=== PATIENT | female | born 1940 | race Caucasian/White ===

== ENCOUNTER 2023-04-19 19:34 | Emergency (ER) | payer MEDICARE, SELFPAY ==
[2023-04-19 19:45] VITALS: BP 152/70
[2023-04-19 19:53] LABS: Glucose - Point of Care 97 mg/dl (70-99)
--- NOTE | 2023-04-19 20:31 | ED.CVA ---
History of Present Illness
General
Chief Complaint: CVA/TIA Symptoms
Source: patient
Exam Limitations: none
Time Seen by Provider: 04/19/23 20:19
Nursing documentation reviewed up to this point in time: agreed with
Onset of Stroke Symptoms
Onset of symptoms known: Yes
Date of onset of symptoms: 04/19/23
Time of onset of symptoms: 19:30
Travel History
Have you had any contact with someone who has COVID-19?: No
Do you have any symptoms of coronavirus? Fever > 100 degrees, chills, cough, shortness of breath, sore throat, loss of taste or smell, muscle aches, or headache?: No
History of Present Illness
History of Present Illness:
82-year-old female presents for evaluation about an hour ago she complained of increased weakness of her chronically weak right leg 2019 she had a intracerebral hemorrhage, subsequently recovered physical therapy has chronic weakness of her right
leg greater than arm, developed A-fib about a year ago started on Eliquis which she has been compliant with, drinks socially not excess none for about 4 days, has some mild headache and neck pain feels nauseous vomited x 1 she is concerned she is
having another stroke/bleed
Past History
Past History
ED Past Medical History: Arrthythmia, Cancer (breast, thyroid, skin CA), HTN, Hypothyroidism, Psychiatric (MDD/O), Other (RHETT, peripheral neuropathy) and Other (ICHemorrhage, morbid obesity); Negative CAD, IDDM or NIDDM
ED Past Surgical History: Gynecological (hysterectomy) and Other (lumpectomy, radiation for breast CA; thyroidectomy surgery for thyroid cancer)
Social History
Tobacco: Former smoker (35 years ago)
Alcohol: None
Drug: None
Personal:
Living: with family
Employment: Retired
Family History
Family History: Other (reviewed and non-contributory)
Review of Systems
Review of Systems
All Other Systems: Not applicable
Constitutional: Reports fatigue; Denies fever
Respiratory: Reports no symptoms
Cardiac: Reports no symptoms
ABD/GI: Reports vomiting
: Reports no symptoms
Neurological: Reports headache and weakness (Right-sided)
Phy Exam
Physical Exam
Physical Exam:
Physical Exam
General: no apparent distress, not acutely ill
Neck: No jaundice no tongue
Heart: Regular
Lungs: no acute respiratory distress. clear bilaterally
Abdomen: Nontender
Neuro: alert and oriented. Weakness of the right leg
Skin: no rash
Psychiatric: well kept. interactive and cooperative
Extremities: no edema.
Course
Orders/Labs/Results
Orders:
Orders
04/19/23 19:47
Electrocardiogram (*1) Urgent
Reason for Study: Shortness of Breath
Accucheck Once [Bedside Glucose Monitoring-ONCE] As Directed
04/19/23 19:48
EKG- Treatment ONCE
04/19/23 19:50
CT Head W/o Iv Contrast Urgent
Comment:
Reason For Exam: weakness
04/19/23 20:15
CMP [Comprehensive Metabolic Panel] Urgent
Complete Blood Count/With Diff Urgent
04/19/23 20:36
0.9% Sodium Chloride 1000 ml [Nss] 1,000 ml IV BOLUS
Ondansetron Injectable [Zofran] 4 mg IV NOW STA
Abnormal Lab Results
04/19/23
20:15
MPV 11.2 H fL
(7.4-10.4)
Absolute Lymphs (auto) 0.4 L 10^3/uL
(1.2-3.4)
Neutrophils % 90.8 H %
(42.2-75.2)
Lymphocytes % 5.2 L %
(20.5-51.1)
Chloride 109 H mmol/L
(98-107)
BUN 23 H mg/dl
(7-17)
Glucose 121 H mg/dl
(70-99)
04/19/23 20:15
04/19/23 20:15
Vital Signs
Initial and Last Documented VS:
Initial Vital Signs
Temp Pulse Resp BP Pulse Ox
97.4 F 104 26 152/70 100
04/19/23 19:45 04/19/23 19:45 04/19/23 19:45 04/19/23 19:45 04/19/23 19:45
Last Documented Vital Signs
Temp Pulse Resp BP Pulse Ox
97.4 F 97 22 140/60 94
04/19/23 19:45 04/19/23 22:00 04/19/23 22:00 04/19/23 22:00 04/19/23 22:00
MDM/Problems Addressed
Differential Diagnosis Includes:
CVA recrudescence deconditioning UTI
MDM/Problems Addressed:
Right leg weakness
Chronic conditions affecting care: Arrhythmia and Neurological disorder
Acute Exacerbation and/or Progression of Chronic Illness: Arrhythmia and Neurological disorder
*Critical Care Note
Total Time (30-74mins, 75-104mins- exclusive of procedures): Not Applicable
Update Note
Update Note:
9:[address] of the head noted EKG noted labs noted
1010 pt feeling much better
she says she is at her baseline
ED Attending Note
-
Portions of this chart may have been created with voice recognition software.� Occasional wrong word or��sound alike� substitutions may have occurred due to the inherent limitations of voice recognition software.
Discharge Plan
Departure
Patient Disposition: Home (Routine Discharge)
Date of Disposition: 04/19/23
Time of Disposition: 22:09
Patient with high blood pressure during this ER visit?: No
Condition: Good
Discharge Problem:
Vomiting
Instructions: Acute Nausea and Vomiting
Prescriptions:
New
ondansetron 4 mg tablet,disintegrating
4 mg PO Q8H PRN (Reason: nausea and vomiting) 4 Days Qty: 14 0RF
No Action
Eliquis 5 MG tablet
5 mg PO BID Qty: 60 0RF
calcium carbonate-vitamin D3 [Oyster Shell Calcium-Vit D3] 1 EACH tablet
1 ea PO BID
levothyroxine 88 mcg Tablet
88 mcg PO DAILY
diltiazem HCl 120 MG capsule,extended release 24hr
120 mg PO BID
Patient Comments:
Pt states 'I started taking it twice a day before I left for my trip on December 11 but I don't remember the exact date.'
furosemide 20 MG tablet
20 mg PO DAILY PRN (Reason: SWELLING OF THE ANKLES)
amoxicillin-pot clavulanate 875-125 mg Tablet
1 tab PO BID Qty: 10 0RF
Referrals:
Lola Barnett DO [Family Provider] -
Interventions
Interventions:
*Risk Screen - Suicide Last Done: 04/19/23 19:45
*Neglect/Abuse Screening Last Done: 04/19/23 19:45
ED- Cardiac Assessment Last Done: 04/19/23 20:52
ED- Neurological Assessment Last Done: 04/19/23 20:52
ED- Pulmonary Assessment Last Done: 04/19/23 20:52
[2023-04-19 20:33] LABS: % Basophils 0.3 % (0-2); % Eosinophils 1.2 % (0-6); % Immature Granulocytes 0.4 % (0-0.5); % Lymphocytes 5.2 % (20.5-51.1); % Monocytes 2.1 % (1.7-9.3); % Neutrophils 90.8 % (42.2-75.2); Absolute Eosinophils 0.1 10^3/uL (0-0.7); Absolute Lymphocytes 0.4 10^3/uL (1.2-3.4); Absolute Monocytes 0.1 10^3/uL (0.1-0.6); Absolute Neutrophils 6.1 10^3/uL (1.4-6.5); Hematocrit 37.8 % (37.0-47.0); Hemoglobin 12.9 g/dL (12.0-16.0); Mean Corp Hgb Conc. 34.1 g/dL (33.0-37.0); Mean Corpuscular Hgb 30.3 pg (27.0-31.0); Mean Corpuscular Volume 88.7 fL (81.0-99.0); Mean Platelet Volume 11.2 fL (7.4-10.4); Nucleated Red Blood Cells % 0 %; Platelet Count 148 10^3/uL (130-400); Red Blood Cell Count 4.26 10^6/uL (4.20-5.40); Red Cell Dist. Width 12.5 % (11.5-14.5); White Blood Cell Count 6.7 10^3/uL (4.8-10.8)
[2023-04-19 20:43] LABS: ALT (SGPT) 17 U/L (0-35); AST (SGOT) 27 U/L (14-36); Alkaline Phosphatase 92 U/L (38-126); Blood Urea Nitrogen 23 mg/dl (7-17); Calcium 9.1 mg/dl (8.4-10.2); Carbon Dioxide 23 mmol/L (22-30); Chloride 109 mmol/L (98-107); Glucose 121 mg/dl (70-99); Potassium 3.8 mmol/L (3.5-5.1); Sodium 138 mmol/L (135-145); Total Bilirubin 0.7 mg/dl (0.2-1.3); Total Protein 6.7 g/dl (6.3-8.2); eGFR > 60.00
[2023-04-19] MEDS: NSS 1000 IV (20:46)
[2023-04-19 20:49] VITALS: BP 137/55
[2023-04-19 21:00] VITALS: BP 145/56
[2023-04-19 22:00] VITALS: BP 140/60
[2023-04-19 22:17] VITALS: BP 137/65
== END 2023-04-19 22:22 | disposition home or self-care (01) ==
LOC: EMR 19:34
PROVIDERS: Student in an Organized Health Care Education/Training Program; EMERGENCY PHYSICIAN Emergency Medicine; FAMILY PHYSICIAN Student in an Organized Health Care Education/Training Program
DX: R11.10 Vomiting, unspecified (principal); R51.9 Headache, unspecified; R53.83 Other fatigue; R53.1 Weakness; M54.2 Cervicalgia; I48.91 Unspecified atrial fibrillation; R56.9 Unspecified convulsions; I11.0 Hypertensive heart disease with heart failure; I50.9 Heart failure, unspecified; F41.9 Anxiety disorder, unspecified; F32.A Depression, unspecified; G47.33 Obstructive sleep apnea (adult) (pediatric); E66.01 Morbid (severe) obesity due to excess calories; G62.9 Polyneuropathy, unspecified; Z79.01 Long term (current) use of anticoagulants; Z85.850 Personal history of malignant neoplasm of thyroid; Z85.3 Personal history of malignant neoplasm of breast; Z85.828 Personal history of other malignant neoplasm of skin; Z86.73 Personal history of transient ischemic attack (TIA), and cerebral infarction without residual deficits; Z92.3 Personal history of irradiation; Z87.891 Personal history of nicotine dependence
CPT/HCPCS: 99284; 96360; 70450; 80053; 82962; 85025; 93005

== ENCOUNTER 2023-07-23 11:01 | Emergency (ER) | payer MEDICARE, SELFPAY ==
[2023-07-23 11:10] VITALS: BP 174/103
--- NOTE | 2023-07-23 11:37 | ED.GENMED ---
History of Present Illness
General
Chief Complaint: Heart Rate Problem
Time Seen by Provider: 07/23/23 11:30
Travel History
Have you had any contact with someone who has COVID-19?: No
Do you have any symptoms of coronavirus? Fever > 100 degrees, chills, cough, shortness of breath, sore throat, loss of taste or smell, muscle aches, or headache?: No
History of Present Illness
History of Present Illness:
HPI: The patient presents due to sensation of going back into atrial fibrillation. She has had similar episode in the last few weeks. She spoke to Dr. Huerta who increased her Cardizem CD from 240 mg to 360 mg. However she gets her medications
from [facility] and they have not arrived yet and will not arrive for the next 4 days. She did convert spontaneously to a sinus rhythm in the ED. Now she has no symptoms.
EXAM:
GENERAL: Well appearing in no distress
HEENT: Moist oral mucosa
CARDIOVASCULAR: No murmurs, normal heart rate, regular rhythm, No chest wall tenderness
PULMONARY: No respiratory distress, breath sounds are clear and equal
ABDOMEN: Soft with no peritoneal signs, no tenderness
NEUROLOGIC: Excellent strength all extremities, no coordination deficits
PSYCHIATRIC: Appropriate mental status, normal insight and judgement
EXTREMITIES: Nontender, no edema, moves all extremities equally
SKIN: No rash, no lesions
TIME OF INITIAL ENCOUNTER: 11:50 AM
NUMBER AND COMPLEXITY OF PROBLEMS ADDRESSED AT THE ENCOUNTER
� Chronic conditions affecting care: Has had A-fib, CHF, high blood pressure, SAH, thyroid cancer, breast cancer, skin cancer, anxiety/depression
� Acute Exacerbation and/or Progression of Chronic Illness: This is an acute problem
� Differential Diagnosis includes: Recurrence of A-fib, electrolyte normality, thyroid disease
AMOUNT AND/OR COMPLEXITY OF DATA TO BE REVIEWED AND ANALYZED
� I performed an independent evaluation of and my interpretation is:
EKG: A-fib rate of 129, normal axis, nonspecific ST abnormality, without intervention, EKG #2 shows sinus 73, nonspecific ST abnormality
CT:
X-rays:
Laboratory Studies: White count 4.3, hemoglobin normal, chemistries unremarkable, thyroid testing normal
Other:
� Review of other/old records: The patient was admitted with colitis approximately 7 months ago
� Clinical information was obtained by an independent historian: Spoke to family at bedside
� Prescriptions/Medications Considered but not given:
� Further testing considered but not performed:
RISK OF COMPLICATIONS AND/OR MORBIDITY OR MORTALITY OF PATIENT MANAGEMENT
� Social determinants of health affecting care: Lives at home
� Discussion with other providers:
� Escalation of care including admission/observation vs risk of discharge considered: The patient did not start the recommended increasing diltiazem dosing, she is waiting on pills from [facility]; I did send a prescription for these
pills to a local pharmacy. She spontaneously converted prior to any intervention here.
Past History
Past History
ED Past Medical History: Arrthythmia, Cancer (breast, thyroid, skin CA), HTN, Hypothyroidism, Psychiatric (MDD/O), Other (RHETT, peripheral neuropathy) and Other (ICHemorrhage, morbid obesity); Negative CAD, IDDM or NIDDM
ED Past Surgical History: Gynecological (hysterectomy) and Other (lumpectomy, radiation for breast CA; thyroidectomy surgery for thyroid cancer)
Social History
Tobacco: Former smoker (35 years ago)
Alcohol: None
Drug: None
Personal:
Living: with family
Employment: Retired
Family History
Family History: Other (reviewed and non-contributory)
Phy Exam
Physical Exam
Physical Exam:
See HPI
Course
Orders/Labs/Results
Orders:
Orders
07/23/23 11:03
Electrocardiogram (*1) Urgent
Reason for Study: Atrial Fibrillation
EKG- Treatment ONCE
07/23/23 11:38
Electrocardiogram (*1) Urgent
Reason for Study: Atrial Fibrillation
EKG- Treatment ONCE
07/23/23 11:53
Diltiazem Extended Release [Cardizem Cd] 120 mg PO NOW STA
07/23/23 11:55
Basic Metabolic Panel Urgent
Complete Blood Count/With Diff Urgent
Magnesium Urgent
TSH Reflex To Free T4 Urgent
Abnormal Lab Results
07/23/23
11:55
WBC 4.3 L 10^3/uL
(4.8-10.8)
MPV 11.5 H fL
(7.4-10.4)
Absolute Lymphs (auto) 0.9 L 10^3/uL
(1.2-3.4)
Glucose 107 H mg/dl
(70-99)
07/23/23 11:55
07/23/23 11:55
Vital Signs
Initial and Last Documented VS:
Initial Vital Signs
Temp Pulse Resp BP Pulse Ox
97.8 F 128 24 174/103 100
07/23/23 11:10 07/23/23 11:10 07/23/23 11:10 07/23/23 11:10 07/23/23 11:10
Last Documented Vital Signs
Temp Pulse Resp BP Pulse Ox
97.8 F 75 24 136/75 96
07/23/23 11:10 07/23/23 14:00 07/23/23 11:10 07/23/23 12:07 07/23/23 14:00
*Critical Care Note
Total Time (30-74mins, 75-104mins- exclusive of procedures): Not Applicable
ED Attending Note
-
Portions of this chart may have been created with voice recognition software.� Occasional wrong word or��sound alike� substitutions may have occurred due to the inherent limitations of voice recognition software.
Discharge Plan
Departure
Instructions: Atrial Fibrillation (DC)
Prescriptions:
New
diltiazem HCl 360 mg capsule,extended release 24hr
360 mg PO DAILY Qty: 10 0RF
No Action
Eliquis 5 MG tablet
5 mg PO BID Qty: 60 0RF
calcium carbonate-vitamin D3 [Oyster Shell Calcium-Vit D3] 1 EACH tablet
1 ea PO BID
levothyroxine 88 mcg Tablet
88 mcg PO DAILY
diltiazem HCl 120 MG capsule,extended release 24hr
120 mg PO BID
Patient Comments:
Pt states 'I started taking it twice a day before I left for my trip on December 11 but I don't remember the exact date.'
furosemide 20 MG tablet
20 mg PO DAILY PRN (Reason: SWELLING OF THE ANKLES)
amoxicillin-pot clavulanate 875-125 mg Tablet
1 tab PO BID Qty: 10 0RF
ondansetron 4 mg tablet,disintegrating
4 mg PO Q8H PRN (Reason: nausea and vomiting) 4 Days Qty: 14 0RF
Interventions
Interventions:
*Risk Screen - Suicide Last Done: 07/23/23 11:11
*General Assessment Last Done: 07/23/23 11:11
*Neglect/Abuse Screening Last Done: 07/23/23 11:11
Discharge Date and Time
Print Language: POLISH
[2023-07-23 11:45] VITALS: BP 159/85
[2023-07-23 12:00] VITALS: BP 136/75
[2023-07-23 12:04] LABS: % Basophils 0.7 % (0-2); % Eosinophils 5.4 % (0-6); % Immature Granulocytes 0.2 % (0-0.5); % Lymphocytes 21.3 % (20.5-51.1); % Monocytes 7.7 % (1.7-9.3); % Neutrophils 64.7 % (42.2-75.2); Absolute Eosinophils 0.2 10^3/uL (0-0.7); Absolute Lymphocytes 0.9 10^3/uL (1.2-3.4); Absolute Monocytes 0.3 10^3/uL (0.1-0.6); Absolute Neutrophils 2.8 10^3/uL (1.4-6.5); Hematocrit 40.3 % (37.0-47.0); Hemoglobin 13.5 g/dL (12.0-16.0); Mean Corp Hgb Conc. 33.5 g/dL (33.0-37.0); Mean Corpuscular Hgb 29.5 pg (27.0-31.0); Mean Corpuscular Volume 88.2 fL (81.0-99.0); Mean Platelet Volume 11.5 fL (7.4-10.4); Nucleated Red Blood Cells % 0 %; Platelet Count 151 10^3/uL (130-400); Red Blood Cell Count 4.57 10^6/uL (4.20-5.40); Red Cell Dist. Width 13.7 % (11.5-14.5); White Blood Cell Count 4.3 10^3/uL (4.8-10.8)
[2023-07-23] MEDS: CARDIZEM CD 120 MG PO (12:07)
[2023-07-23 12:20] LABS: Blood Urea Nitrogen 17 mg/dl (7-17); Calcium 9.4 mg/dl (8.4-10.2); Carbon Dioxide 22 mmol/L (22-30); Chloride 107 mmol/L (98-107); Glucose 107 mg/dl (70-99); Magnesium 2.2 mg/dl (1.6-2.3); Potassium 3.7 mmol/L (3.5-5.1); Sodium 140 mmol/L (135-145); eGFR > 60.00
[2023-07-23 14:45] VITALS: BP 122/66
== END 2023-07-23 15:07 | disposition home or self-care (01) ==
LOC: EMR 11:01
PROVIDERS: EMERGENCY PHYSICIAN Emergency Medicine; FAMILY PHYSICIAN Student in an Organized Health Care Education/Training Program
DX: I48.91 Unspecified atrial fibrillation (principal); Z87.891 Personal history of nicotine dependence
CPT/HCPCS: 99284; 80048; 83735; 84443; 85025; 93005

== ENCOUNTER 2023-07-25 15:20 | Emergency (ER) | payer MEDICARE, SELFPAY ==
[2023-07-25 15:25] VITALS: BP 139/82
[2023-07-25 17:21] VITALS: BP 103/81
--- NOTE | 2023-07-25 18:15 | ED.MUSCINJ ---
HPI-Injury
General
Chief Complaint: Fall
Source: patient and family
Exam Limitations: none
Time Seen by Provider: 07/25/23 16:36
Nursing documentation reviewed up to this point in time: agreed with
Travel History
Have you had any contact with someone who has COVID-19?: No
Do you have any symptoms of coronavirus? Fever > 100 degrees, chills, cough, shortness of breath, sore throat, loss of taste or smell, muscle aches, or headache?: No
History of Present Illness-Injury
Initial Injury comments:
82 yo female w h/o a fib, CHF, HTN, CVA with residual weakness right leg, presents after fall onto both knees and hands. Pain and swelling left knee, mild pain with small bruise right knee, left palm bruise. Was talking on her phone walking from
bedroom to hallway at home, her right foot sneaker caught on rug (her right leg sometimes does not lift high enough post CVA) and she tripped, fell forward onto hands and knees. Denies hitting head.. Was seen here 2 days ago for a fib, medications
adjusted and discharged in [facility].
She denies feeling weak or dizzy, having palpitations, chest pain or headache prior to fall.
Son at bedside who she was on the phone with agrees with history
Past History
Past History
ED Past Medical History: Arrthythmia, Cancer (breast, thyroid, skin CA), HTN, Hypothyroidism, Psychiatric (MDD/O), Other (RHETT, peripheral neuropathy) and Other (ICHemorrhage, morbid obesity); Negative CAD, IDDM or NIDDM
ED Past Surgical History: Gynecological (hysterectomy) and Other (lumpectomy, radiation for breast CA; thyroidectomy surgery for thyroid cancer)
Social History
Tobacco: Former smoker (35 years ago)
Alcohol: None
Drug: None
Personal:
Living: with family
Employment: Retired
Family History
Family History: Other (reviewed and non-contributory)
Review of Systems
Review of Systems
Allergies reviewed?: Yes
All Other Systems: ROS reviewed and negative except as documented in HPI and ROS
Constitutional: Denies fever or fatigue
Respiratory: Denies trouble breathing
Cardiac: Denies chest pain
ABD/GI: Denies abdominal pain
: Denies dysuria, frequency, difficulty voiding or urgency
Musculoskeletal: Reports other (pain both knees, swelling and bruising left knee > right); Denies neck pain or back pain
Skin: Reports no symptoms
Neurological: Reports no symptoms
Phy Exam
Physical Exam
Physical Exam:
GENERAL: No acute distress. A&Ox3.
CONSTITUTIONAL: Afebrile.
EYES: clear, conjunctivae normal
Neck: Supple
ENMT: moist mucus membranes, Pharynx nl
RESPIRATORY: Regular respirations, nonlabored, lungs clear.
CARDIOVASCULAR: Regular rate and rhythm, no murmurs, no rubs.
GI: Soft, nontender, normal BS
MUSCULOSKELETAL: Left hand with full ROM, no significant bony tenderness. Right knee: mild swelling, mild ecchymosis over medial patella, tender lateral knee and upper patella. Adequate ROM.
Left knee: significant swelling and ecchymosis. Limited ROM. Pedal pulse 2/4, feet warm and pink. Moves with ease. Well perfused. No compartment syndrome
SKIN: Warm, dry, pink
PSYCH: Normal mood and affect. Well kept, interactive and appropriate
NEUROLOGIC: Awake, alert and oriented. No focal neurological deficits
Injury Course
Orders/Labs/Results
Orders:
Orders
07/25/23 15:33
ECG [Electrocardiogram (*1)] Urgent
Reason for Study: Atrial Fibrillation
07/25/23 15:34
EKG- Treatment ONCE
07/25/23 17:08
Knee, Left 4 or More Views [CR Knee - Left 4 Or More View*] Urgent
Comment:
Reason For Exam: pain, swelling after fall, on eliquis
Knee, Right 4 or More Views [CR Knee- Right 4 Or More View*] Urgent
Comment:
Reason For Exam: pain after fall, on Eliquis
MDM/Problems Addressed
Differential Diagnosis Includes:
knee fracture/sprain/hemarthrosis/soft tissue, compartment syndrome
MDM/Problems Addressed:
82 yo female w h/o a fib, CHF, HTN, CVA with residual weakness right leg, presents after fall onto both knees and hands. Pain and swelling left knee, mild pain with small bruise right knee, left palm bruise. Was talking on her phone walking from
bedroom to hallway at home, her right foot sneaker caught on rug (her right leg sometimes does not lift high enough post CVA) and she tripped, fell forward onto hands and knees. Denies hitting head.. Was seen here 2 days ago for a fib, medications
adjusted and discharged in [facility].
She denies feeling weak or dizzy, having palpitations, chest pain or headache prior to fall.
Son at bedside who she was on the phone with agrees with history
6:19 p.m.
Xray right knee initially read by this examiner: Neg for fx, + STS anteriorly
Xray left knee initially read by this examiner: neg for fx. +STS. Radiology report: IMPRESSION:
1. No radiographic evidence for acute fracture or joint effusion in the left knee.
2. Mild medial and patellofemoral compartment osteoarthritis.
3. Severe soft tissue swelling and subcutaneous edema in the medial and lateral soft tissues.
No compartment syndrome.
Javier wrap applied, distal neurovascular intact. Ambulates well with cane.
Referred to orthopedics for follow up
Return instructions reviewed with pt and family
*EKG
EKG Intrepretation Date: 07/25/23
Interpretation: normal
Rate: normal
Rhythm: sinus
[place]: normal axis
Interval: normal interval
QRS Pattern: normal QRS
Ischemia: no ischemia
*Critical Care Note
Total Time (30-74mins, 75-104mins- exclusive of procedures): Not Applicable
ED Attending Note
-
Portions of this chart may have been created with voice recognition software.� Occasional wrong word or��sound alike� substitutions may have occurred due to the inherent limitations of voice recognition software.
Discharge Plan
Departure
Patient Disposition: Home (Routine Discharge)
Date of Disposition: 07/25/23
Time of Disposition: 18:33
Patient with high blood pressure during this ER visit?: No
Condition: Good
Discharge Problem:
contusion both knees, Fall from slip, trip, or stumble, Contusion of left hand
Instructions: Acute Compartment Syndrome (DC), Contusion (DC), Preventing falls in adults
Prescriptions:
No Action
Eliquis 5 MG tablet
5 mg PO BID Qty: 60 0RF
calcium carbonate-vitamin D3 [Oyster Shell Calcium-Vit D3] 1 EACH tablet
1 ea PO BID
levothyroxine 88 mcg Tablet
88 mcg PO DAILY
diltiazem HCl 120 MG capsule,extended release 24hr
120 mg PO BID
Patient Comments:
Pt states 'I started taking it twice a day before I left for my trip on December 11 but I don't remember the exact date.'
furosemide 20 MG tablet
20 mg PO DAILY PRN (Reason: SWELLING OF THE ANKLES)
amoxicillin-pot clavulanate 875-125 mg Tablet
1 tab PO BID Qty: 10 0RF
ondansetron 4 mg tablet,disintegrating
4 mg PO Q8H PRN (Reason: nausea and vomiting) 4 Days Qty: 14 0RF
diltiazem HCl 360 mg capsule,extended release 24hr
360 mg PO DAILY Qty: 10 0RF
Referrals:
Lola Barnett DO [Family Provider] -
Pravin Colon MD [Active] - Call in 1-3 days for appt
Activity Restrictions/Additional Instructions:
As we discussed, rest with the feet elevated to the level of your heart as much as you can in the next 2 days.
Javier wrap to left knee,cold compress to knees 20 minutes off and on for the next 2-3 days.
Tylenol as needed for pain.
Call the orthopedic doctor Thursday and make appointment for same or next week.
Return here immediately for signs of compartment syndrome which we discussed and I provided you with information on FYI
Interventions
Interventions:
*Risk Screen - Suicide Last Done: 07/25/23 15:25
*General Assessment Last Done: 07/25/23 15:25
*Neglect/Abuse Screening Last Done: 07/25/23 15:25
*ED COVID-19 Vaccine History Last Done: 07/25/23 15:25
*Nursing Disposition Last Done: 07/25/23 18:54
ED-Musculoskeletal Assessment Last Done: 07/25/23 18:21
ED- Neurological Assessment Last Done: 07/25/23 18:21
ED-Skin Assessment Last Done: 07/25/23 18:21
Discharge Date and Time
Discharge Date/Time: 07/25/23 18:54
Print Language: KOREAN
== END 2023-07-25 18:54 | disposition home or self-care (01) ==
LOC: EMR 15:20
PROVIDERS: EMERGENCY PHYSICIAN Emergency Medicine; FAMILY PHYSICIAN Student in an Organized Health Care Education/Training Program
DX: S80.02XA Contusion of left knee, initial encounter (principal); S80.01XA Contusion of right knee, initial encounter; S60.222A Contusion of left hand, initial encounter; W01.0XXA Fall on same level from slipping, tripping and stumbling without subsequent striking against object, initial encounter; I11.0 Hypertensive heart disease with heart failure; I50.9 Heart failure, unspecified; I69.351 Hemiplegia and hemiparesis following cerebral infarction affecting right dominant side; I48.91 Unspecified atrial fibrillation; E03.9 Hypothyroidism, unspecified; G47.33 Obstructive sleep apnea (adult) (pediatric); E66.01 Morbid (severe) obesity due to excess calories; R56.9 Unspecified convulsions; F41.9 Anxiety disorder, unspecified; F32.A Depression, unspecified; M19.90 Unspecified osteoarthritis, unspecified site; Z85.3 Personal history of malignant neoplasm of breast; Z85.850 Personal history of malignant neoplasm of thyroid; Z85.828 Personal history of other malignant neoplasm of skin; Z86.711 Personal history of pulmonary embolism; Z79.01 Long term (current) use of anticoagulants
CPT/HCPCS: 99283; 73564; 93005

== ENCOUNTER 2023-11-30 07:09 | Emergency (ER) | payer MEDICARE, SELFPAY ==
[2023-11-30 07:14] VITALS: BP 155/55; BMI 30.1
--- NOTE | 2023-11-30 07:29 | ED.CVA ---
History of Present Illness
General
Chief Complaint: CVA/TIA Symptoms
Time Seen by Provider: 11/30/23 07:10
Onset of Stroke Symptoms
Onset of symptoms known: Yes
Date of onset of symptoms: 11/30/23
Time of onset of symptoms: 06:00
History of Present Illness
History of Present Illness:
83-year-old female with history of prior subarachnoid hemorrhage, A-fib on Eliquis, CHF, hypertension and prior pulmonary embolism presents to the emergency department for evaluation of acute onset of right upper and lower extremity 'heaviness and
numbness' that began while in her shower at approximately 6 AM today. She states she felt as though she was dropping things while showering with the right hand. Reports mild headache that is since resolved. Notes from her prior right-sided CVA 5
years ago she has no residual symptoms but this did affect her right side. She has been compliant with her anticoagulants. Denies chest pain or shortness of breath at this time
Past History
Past History
ED Past Medical History: Arrthythmia, Cancer (breast, thyroid, skin CA), HTN, Hypothyroidism, Psychiatric (MDD/O), Other (RHETT, peripheral neuropathy) and Other (ICHemorrhage, morbid obesity); Negative CAD, IDDM or NIDDM
ED Past Surgical History: Gynecological (hysterectomy) and Other (lumpectomy, radiation for breast CA; thyroidectomy surgery for thyroid cancer)
Social History
Tobacco: Former smoker (35 years ago)
Alcohol: None
Drug: None
Personal:
Living: with family
Employment: Retired
Family History
Family History: Other (reviewed and non-contributory)
Review of Systems
Review of Systems
Allergies reviewed?: Yes
All Other Systems: ROS reviewed and negative except as documented in HPI and ROS
Phy Exam
Physical Exam
Physical Exam:
GEN: Well appearing, NAD, WDWN
HEENT: Oral mucosa moist, no scleral icterus, no nasal congestion
Cardiac: Regular rate and rhythm, no murmurs
Lung: No respiratory distress, no tachypnea
MSK: No gross deformity or injuries
Skin: Good color, no pallor or jaundice, no rashes
Neuro: AO x3; CN II-XII grossly intact. BUE strength 5/5 in all mckinnon, sensation intact and symmetric. BLE strength 5/5 in all mckinnon, sensation intact and symmetric. No limb ataxia x 4, visual mckinnon intact by confrontation and symmetric
bilaterally
Psych: Calm, cooperative
Course
Orders/Labs/Results
Orders:
Orders
11/30/23 07:11
Electrocardiogram (*1) Urgent
Reason for Study: Atrial Fibrillation
EKG- Treatment ONCE
11/30/23 07:27
CMP [Comprehensive Metabolic Panel] Urgent
Complete Blood Count/With Diff Urgent
11/30/23 07:32
CT Head W/o Iv Contrast Urgent
Comment:
Reason For Exam: TIA/CVA
11/30/23 08:39
Urinalysis Reflex To Culture Urgent
Date Specimen was Collected: 11/30/23
Time Specimen was Collected: 07:28
Urine Microscopic Reflex Cult Urgent
Urine Culture Urgent
YA Source: U
Specimen Description:
Date Specimen was Collected: 11/30/23
Time Specimen was Collected: 07:28
11/30/23 09:21
Fosfomycin [Monurol] 3 gm PO ONCE ONE
Abnormal Lab Results
11/30/23 11/30/23
07:27 08:39
MPV 11.3 H fL
(7.4-10.4)
Chloride 108 H mmol/L
(98-107)
Carbon Dioxide 21 L mmol/L
(22-30)
BUN 24 H mg/dl
(7-17)
Glucose 103 H mg/dl
(70-99)
Leukocyte Esterase Rfl 1+ A
(Negative)
Urine WBC (Reflex) 11-15 A /HPF
(0-5)
Urine Bacteria (Reflex) Few A
(Negative)
11/30/23 07:27
11/30/23 07:27
Vital Signs
Initial and Last Documented VS:
Initial Vital Signs
Temp Pulse Resp BP Pulse Ox
97.7 F 74 18 155/55 98
11/30/23 07:14 11/30/23 07:14 11/30/23 07:14 11/30/23 07:14 11/30/23 07:14
Last Documented Vital Signs
Temp Pulse Resp BP Pulse Ox
97.7 F 67 8 114/98 96
11/30/23 07:14 11/30/23 08:45 11/30/23 08:45 11/30/23 08:38 11/30/23 08:45
MDM/Problems Addressed
MDM/Problems Addressed:
83-year-old female presents with sensation of heaviness and weakness in the right arm and right leg. Objectively she has no neurologic deficits and is an NIH of 0. CT of the head is unremarkable. I did recommend admission after discussion with
neurology however the patient and family declined as they feel, rightfully so, that even in the event of a stroke on MRI there would likely not be any change in her medical management. She does have bacteriuria/pyuria thus this may indicate
recrudescence of prior stroke symptoms in the setting of an acute UTI. After lengthy discussion with the family the patient at bedside about the risks of discharge home versus benefit of admission, through shared decision making we opted for
discharge to home. Single dose of fosfomycin was given to treat for potential UTI with culture pending. She is encouraged to call her primary care physician to schedule an outpatient MRI and follow-up in the emergency department with any worsening
symptoms
Comment
Comment:
EKG independently interpreted by me shows a normal sinus rhythm at a rate of [address] changes concerning for ischemia, QTc of 465
*Critical Care Note
Total Time (30-74mins, 75-104mins- exclusive of procedures): Not Applicable
ED Attending Note
-
Portions of this chart may have been created with voice recognition software.� Occasional wrong word or��sound alike� substitutions may have occurred due to the inherent limitations of voice recognition software.
Discharge Plan
Departure
Patient Disposition: Home (Routine Discharge)
Date of Disposition: 11/30/23
Time of Disposition: :
Patient with high blood pressure during this ER visit?: No
Discharge Problem:
Bacteriuria with pyuria, Paresthesia of right arm and leg
Instructions: Stroke (DC), Urinary Tract Infection, Adult ED
Prescriptions:
No Action
Eliquis 5 MG tablet
5 mg PO BID Qty: 60 0RF
calcium carbonate-vitamin D3 [Oyster Shell Calcium-Vit D3] 1 EACH tablet
1 ea PO BID
levothyroxine 88 mcg Tablet
88 mcg PO DAILY
diltiazem HCl 120 MG capsule,extended release 24hr
120 mg PO BID
Patient Comments:
Pt states 'I started taking it twice a day before I left for my trip on December 11 but I don't remember the exact date.'
furosemide 20 MG tablet
20 mg PO DAILY PRN (Reason: SWELLING OF THE ANKLES)
amoxicillin-pot clavulanate 875-125 mg Tablet
1 tab PO BID Qty: 10 0RF
ondansetron 4 mg tablet,disintegrating
4 mg PO Q8H PRN (Reason: nausea and vomiting) 4 Days Qty: 14 0RF
diltiazem HCl 360 mg capsule,extended release 24hr
360 mg PO DAILY Qty: 10 0RF
Referrals:
UNKNOWN - PT DOES,NOT KNOW [Family Provider] -
Activity Restrictions/Additional Instructions:
We discussed admission to the hospital for further testing such as a brain MRI however at this time you have opted for discharge home. This is not an unreasonable decision as we suspect you may have a urinary tract infection that is causing your
prior stroke symptoms to represent themselves. If your symptoms worsen at any time particularly if you feel unsafe at home do not hesitate to return to the emergency department for further evaluation. Your urine culture will typically result in 2
to 3 days and if any changes to your treatment are warranted we will contact you. Please contact your primary care physician and request an outpatient brain MRI as this will determine whether the events that led to your symptoms today were caused
by a stroke or an alternative source
Interventions
Interventions:
*Risk Screen - Suicide Last Done: 11/30/23 07:14
*General Assessment Last Done: 11/30/23 07:14
*Neglect/Abuse Screening Last Done: 11/30/23 07:14
ED- Fall Risk Assessment Last Done: 11/30/23 07:14
*ED COVID-19 Vaccine History Last Done: 11/30/23 07:14
*Nursing Disposition Last Done: 11/30/23 09:51
ED- Pulmonary Assessment Last Done: 11/30/23 07:14
ED- Neurological Assessment Last Done: 11/30/23 07:25
ED- Cardiac Assessment Last Done: 11/30/23 07:14
Discharge Date and Time
Discharge Date/Time: 11/30/23 09:45
Print Language: MALIAN
[2023-11-30 07:50] LABS: % Basophils 0.8 % (0-2); % Eosinophils 5.7 % (0-6); % Lymphocytes 32.5 % (20.5-51.1); % Monocytes 9.2 % (1.7-9.3); % Neutrophils 51.8 % (42.2-75.2); Absolute Eosinophils 0.3 10^3/uL (0-0.7); Absolute Lymphocytes 1.6 10^3/uL (1.2-3.4); Absolute Monocytes 0.4 10^3/uL (0.1-0.6); Absolute Neutrophils 2.5 10^3/uL (1.4-6.5); Hematocrit 39.7 % (37.0-47.0); Hemoglobin 13.3 g/dL (12.0-16.0); Mean Corp Hgb Conc. 33.5 g/dL (33.0-37.0); Mean Corpuscular Hgb 29.4 pg (27.0-31.0); Mean Corpuscular Volume 87.6 fL (81.0-99.0); Mean Platelet Volume 11.3 fL (7.4-10.4); Nucleated Red Blood Cells % 0 %; Platelet Count 164 10^3/uL (130-400); Red Blood Cell Count 4.53 10^6/uL (4.20-5.40); White Blood Cell Count 4.8 10^3/uL (4.8-10.8)
[2023-11-30 08:01] LABS: ALT (SGPT) 15 U/L (0-35); AST (SGOT) 23 U/L (14-36); Albumin 4.1 g/dl (3.5-5.0); Alkaline Phosphatase 85 U/L (38-126); Blood Urea Nitrogen 24 mg/dl (7-17); Calcium 9.4 mg/dl (8.4-10.2); Carbon Dioxide 21 mmol/L (22-30); Chloride 108 mmol/L (98-107); Estimated Creatinine Clearance 52 ml/min; Glucose 103 mg/dl (70-99); Potassium 3.8 mmol/L (3.5-5.1); Sodium 143 mmol/L (135-145); Total Bilirubin 0.8 mg/dl (0.2-1.3); Total Protein 6.9 g/dl (6.3-8.2); eGFR > 60.00
[2023-11-30 08:38] VITALS: BP 114/98
[2023-11-30 08:54] LABS: Urine Albumin Negative (Neg - Trace); Urine Bilirubin Negative (Negative); Urine Character Clear (Clear); Urine Color Yellow; Urine Glucose Negative (Negative); Urine Ketone Negative (Negative); Urine Leukocyte 1+ (Negative); Urine Nitrite Negative (Negative); Urine Occult Blood Negative (Negative); Urine Urobilinogen Negative (Neg - 1+)
[2023-11-30 09:13] LABS: Urine Mucus Few
[2023-11-30 09:14] LABS: Urine Bacteria Few (Negative); Urine Red Blood Cell 0-2 /HPF (0-2)
[2023-11-30] MEDS: MONUROL 3 GM PO (09:28)
== END 2023-11-30 09:45 | disposition home or self-care (01) ==
LOC: EMR 07:09
PROVIDERS: Physician Assistant; EMERGENCY PHYSICIAN Emergency Medicine
DX: R82.71 Bacteriuria (principal); R82.81 Pyuria; R20.2 Paresthesia of skin; R53.1 Weakness; I48.91 Unspecified atrial fibrillation; I11.0 Hypertensive heart disease with heart failure; I50.9 Heart failure, unspecified; F32.A Depression, unspecified; G62.9 Polyneuropathy, unspecified; E66.01 Morbid (severe) obesity due to excess calories; G47.33 Obstructive sleep apnea (adult) (pediatric); Z79.01 Long term (current) use of anticoagulants; Z86.711 Personal history of pulmonary embolism; Z86.73 Personal history of transient ischemic attack (TIA), and cerebral infarction without residual deficits; Z85.850 Personal history of malignant neoplasm of thyroid; Z85.3 Personal history of malignant neoplasm of breast; Z85.828 Personal history of other malignant neoplasm of skin; Z92.3 Personal history of irradiation; Z87.891 Personal history of nicotine dependence; Z86.79 Personal history of other diseases of the circulatory system
CPT/HCPCS: 99284; 70450; 80053; 81003; 81015; 85025; 87086; 93005

== ENCOUNTER → 2023-12-02 10:20 | Outpatient (REF) | payer MEDICARE, SELFPAY | LOC: PAVMRI 10:20 | PROVIDERS: ATTENDING PHYSICIAN Family Medicine | DX: Z86.73 Personal history of transient ischemic attack (TIA), and cerebral infarction without residual deficits (principal); G45.9 Transient cerebral ischemic attack, unspecified | CPT/HCPCS: 70551 ==

== ENCOUNTER 2023-12-04 08:58 | Emergency (ER) | payer MEDICARE, SELFPAY ==
[2023-12-04 09:00] VITALS: BP 180/84
[2023-12-04 09:28] LABS: % Basophils 0.7 % (0-2); % Immature Granulocytes 0.9 % (0-0.5); % Monocytes 8.5 % (1.7-9.3); % Neutrophils 50.9 % (42.2-75.2); Absolute Eosinophils 0.2 10^3/uL (0-0.7); Absolute Immature Granulocytes 0.1 10^3/uL (0-0.05); Absolute Monocytes 0.5 10^3/uL (0.1-0.6); Absolute Neutrophils 2.8 10^3/uL (1.4-6.5); Hematocrit 41.4 % (37.0-47.0); Hemoglobin 14.2 g/dL (12.0-16.0); Mean Corp Hgb Conc. 34.3 g/dL (33.0-37.0); Mean Corpuscular Hgb 30.1 pg (27.0-31.0); Mean Corpuscular Volume 87.9 fL (81.0-99.0); Mean Platelet Volume 11.3 fL (7.4-10.4); Nucleated Red Blood Cells % 0 %; Platelet Count 175 10^3/uL (130-400); Red Blood Cell Count 4.71 10^6/uL (4.20-5.40); White Blood Cell Count 5.4 10^3/uL (4.8-10.8)
[2023-12-04 09:33] VITALS: BP 133/58
[2023-12-04 09:38] LABS: Blood Urea Nitrogen 16 mg/dl (7-17); Calcium 9.9 mg/dl (8.4-10.2); Carbon Dioxide 24 mmol/L (22-30); Chloride 105 mmol/L (98-107); Glucose 97 mg/dl (70-99); Potassium 4.3 mmol/L (3.5-5.1); Sodium 142 mmol/L (135-145); eGFR > 60.00
--- NOTE | 2023-12-04 09:39 | ED.CVA ---
History of Present Illness
General
Chief Complaint: CVA/TIA Symptoms
Time Seen by Provider: 12/04/23 09:06
Onset of Stroke Symptoms
Onset of symptoms known: Yes
Date of onset of symptoms: 11/30/23
History of Present Illness
History of Present Illness:
HPI: The patient was seen here 4 days ago with right-sided upper extremity weakness. She was offered and recommended to be kept in the hospital however due to her dog she needed to care for her, she declined and went home. She has a history of
hemorrhagic CVA from 2019 and is currently on Eliquis. She has been having nosebleeds and is not taking any antiplatelets. Yesterday and today the weakness of the right upper extremity worsened and then progressed to the right lower extremity.
EXAM:
GENERAL: Well appearing in no distress
HEENT: Moist oral mucosa
CARDIOVASCULAR: No murmurs, normal heart rate, regular rhythm, No chest wall tenderness
PULMONARY: No respiratory distress, breath sounds are clear and equal
ABDOMEN: Soft with no peritoneal signs, no tenderness
NEUROLOGIC: On the left side, there is excellent strength; no coordination deficits, 4+ out of 5 strength in the right upper and 5 out of 5 strength right lower extremity with minimal pronator drift to the right upper, NIHSS equals 1 and of note
family states that she does have chronic weakness on the right side
PSYCHIATRIC: Appropriate mental status, normal insight and judgement
EXTREMITIES: Nontender, no edema, moves all extremities equally
SKIN: No rash, no lesions
TIME OF INITIAL ENCOUNTER: 9:20 AM
NUMBER AND COMPLEXITY OF PROBLEMS ADDRESSED AT THE ENCOUNTER
� Chronic conditions affecting care: Paroxysmal A-fib, has had intracranial hemorrhage in 2019, has had PE, CHF, anxiety/depression
� Acute Exacerbation and/or Progression of Chronic Illness: This is a subacute/worsening problem
� Differential Diagnosis includes: Progression of CVA, acute CVA, neuropathy
AMOUNT AND/OR COMPLEXITY OF DATA TO BE REVIEWED AND ANALYZED
� I performed an independent evaluation of and my interpretation is:
EKG: Sinus 77, PVCs and PACs
CT: CT head unremarkable; CTA head neck unremarkable
X-rays:
Laboratory Studies: CBC, chemistries, TSH unremarkable
Other:
� Review of other/old records: I reviewed the records including recent MRI
� Clinical information was obtained by an independent historian: I spoke to daughter at bedside
� Prescriptions/Medications Considered but not given: Considered antiplatelets however the patient has had an intracranial hemorrhage in the past and has been having nosebleeds
� Further testing considered but not performed:
RISK OF COMPLICATIONS AND/OR MORBIDITY OR MORTALITY OF PATIENT MANAGEMENT
� Social determinants of health affecting care: Lives at home
� Discussion with other providers: I spoke to neurology (Dr. De La Torre) several times�recommended CTA as well and we did consider antiplatelets
� Escalation of care including admission/observation vs risk of discharge considered: Although the patient reports some subjective worsening of weakness in the right upper and right lower extremities, she was able to keep the leg
off the bed for 5 seconds and has very minimal pronator drift on the right. She is already on Eliquis. We talked about starting antiplatelet therapy however the patient was told not to take antiplatelets in the past that she has had intracranial
hemorrhage. She has also been having nosebleeds. Her symptoms are currently very minimal. She was able to keep the leg off the stretcher for 5 seconds and the pronator drift is very minimal on the right upper extremity.
Past History
Past History
ED Past Medical History: Arrthythmia, Cancer (breast, thyroid, skin CA), HTN, Hypothyroidism, Psychiatric (MDD/O), Other (RHETT, peripheral neuropathy) and Other (ICHemorrhage, morbid obesity); Negative CAD, IDDM or NIDDM
ED Past Surgical History: Gynecological (hysterectomy) and Other (lumpectomy, radiation for breast CA; thyroidectomy surgery for thyroid cancer)
Social History
Tobacco: Former smoker (35 years ago)
Alcohol: None
Drug: None
Personal:
Living: with family
Employment: Retired
Family History
Family History: Other (reviewed and non-contributory)
Phy Exam
Physical Exam
Physical Exam:
See HPI
Course
Orders/Labs/Results
Orders:
Orders
12/04/23 09:14
CT Head W/o Iv Contrast Urgent
Comment:
Reason For Exam: worsening R side weak
12/04/23 09:17
EKG [Electrocardiogram (*1)] Urgent
Reason for Study: Palpitations
EKG- Treatment ONCE
12/04/23 09:18
Basic Metabolic Panel Urgent
Complete Blood Count/With Diff Urgent
TSH Reflex To Free T4 Urgent
12/04/23 09:50
CT Head & Neck Angio W/wo IV Urgent
Comment:
Reason For Exam: worsening R side weakness
12/04/23 11:55
CRP [C-Reactive Protein] Routine
ESR [Erythrocyte Sed Rate] Routine
Hemoglobin A1c [Glycohemoglobin (HgbA1c)] Routine
Lipid Profile [Cardiovascular Evaluation] Routine
Abnormal Lab Results
12/04/23
09:18
MPV 11.3 H fL
(7.4-10.4)
Abs Immat Gran (auto) 0.1 H 10^3/uL
(0-0.05)
Immature Gran % 0.9 H %
(0-0.5)
12/04/23 09:18
12/04/23 09:18
Vital Signs
Initial and Last Documented VS:
Initial Vital Signs
Temp Pulse Resp BP Pulse Ox
98.7 F 84 18 180/84 97
12/04/23 09:00 12/04/23 09:00 12/04/23 09:00 12/04/23 09:00 12/04/23 09:00
Last Documented Vital Signs
Temp Pulse Resp BP Pulse Ox
98.7 F 68 17 138/70 97
12/04/23 09:00 12/04/23 12:00 12/04/23 12:00 12/04/23 12:00 12/04/23 12:00
*Critical Care Note
Total Time (30-74mins, 75-104mins- exclusive of procedures): Not Applicable
ED Attending Note
-
Portions of this chart may have been created with voice recognition software.� Occasional wrong word or��sound alike� substitutions may have occurred due to the inherent limitations of voice recognition software.
Discharge Plan
Departure
Patient Disposition: Home (Routine Discharge)
Date of Disposition: 12/04/23
Time of Disposition: 12:40
Patient with high blood pressure during this ER visit?: Yes
Discharge Problem:
Neurologic deficit as late effect of ischemic cerebrovascular accident (CVA)
Prescriptions:
No Action
Eliquis 5 MG tablet
5 mg PO BID Qty: 60 0RF
calcium carbonate-vitamin D3 [Oyster Shell Calcium-Vit D3] 1 EACH tablet
1 ea PO BID
levothyroxine 88 mcg Tablet
88 mcg PO DAILY
diltiazem HCl 120 MG capsule,extended release 24hr
120 mg PO BID
Patient Comments:
Pt states 'I started taking it twice a day before I left for my trip on December 11 but I don't remember the exact date.'
furosemide 20 MG tablet
20 mg PO DAILY PRN (Reason: SWELLING OF THE ANKLES)
amoxicillin-pot clavulanate 875-125 mg Tablet
1 tab PO BID Qty: 10 0RF
ondansetron 4 mg tablet,disintegrating
4 mg PO Q8H PRN (Reason: nausea and vomiting) 4 Days Qty: 14 0RF
diltiazem HCl 360 mg capsule,extended release 24hr
360 mg PO DAILY Qty: 10 0RF
Referrals:
Victor Manuel Tariq DO [Family Provider] -
Flaca De La Torre MD [Active] - Follow up in 1 week
Khari Huerta MD [Active] - Follow up in 1 week
Activity Restrictions/Additional Instructions:
Continue Eliquis. We talked about starting aspirin or Plavix, however, since you have had bleeding in your brain in the past, and you still have issues with nosebleeds, I recommend against this. Follow-up with neurology. I reviewed your echo
report from last February. Which was relatively unremarkable. Follow-up with your exhibition designer as well in case they want to repeat an echo. The CAT scan of the brain was normal. The CAT scan angiography of the brain and neck did not show any
'large vessel occlusion, dissection, or carotid abnormality'. Return here if worse or other concerns.
Interventions
Interventions:
*Risk Screen - Suicide Last Done: 12/04/23 09:00
*General Assessment Last Done: 12/04/23 09:00
*Neglect/Abuse Screening Last Done: 12/04/23 09:00
ED- Fall Risk Assessment Last Done: 12/04/23 09:34
*ED COVID-19 Vaccine History Last Done: 12/04/23 09:34
ED- Pulmonary Assessment Last Done: 12/04/23 09:34
ED- Neurological Assessment Last Done: 12/04/23 09:34
ED- Cardiac Assessment Last Done: 12/04/23 09:52
ED Swallowing Screen Last Done: 12/04/23 09:52
Discharge Date and Time
Print Language: MALAYSIAN
--- NOTE | 2023-12-04 09:53 | CON.NEURO ---
Consultation
Order
Date of Consultation: 12/04/23
Requesting Provider: Jefry Herrera DO
Reason for Consult: right arm weakness
CC: right hand/ arm weakness
HPI: This is an 83-year-old right-handed woman who presented to [facility] on December 04, 2023 with 5 days of worsening of right arm weakness. According to the patient she developed an acute right hand weakness (she Was Dropping
washcloth while showering on 11/30/2023. She left from [facility] on ER due to the need to care for her ailing dog and continued to struggle with her right hand strength.
Brain MRI without gadolinium (12/02/2023)�acute cortical infarcts in the left MCA and a single punctuate in the R MCA distribution as well as evidence of hemosiderin deposition in the cortical left MCA territory.
Ms. Lee admits that she may have unintentionally missed her Eliquis dose prior her symptoms onset. No reports of movements, sensory deficits, language dysfunction. Aury admits to difficulties with thinking over the last week.
The patient has a history of cortical biparietal ICH presenting with focal seizure in 2019.
ER VS: 155/55-180/84, 74, 37.1C
PDMP:none
EKG: NSR
Labs: Normal WBCs, hemoglobin, platelets, sodium, creatinine, glucose,
PMH: Right breast cancer, thyroid cancer(2000), R parenchymal ICH(2019), h/o PE, PA A-Fib, HTN, CKD, RHETT, hypothyroidism, polyneuropathy
PSH: Right lumpectomy, thyroidectomy, hysterectomy, cardioversion,
SH:lives with a corporate travel agent; former smoker ; retired pathology secretary, independent in ADLs.
All:NKDA
ROS:Constitutional: Negative. Negative for chills, fever and unexpected weight change.
HENT: positive for hearing impairment
Respiratory: Negative for cough, choking and shortness of breath.
Cardiovascular:positive for leg swelling.
Gastrointestinal: Negative for abdominal pain and vomiting.
Endocrine: Negative. Negative for cold intolerance.
Genitourinary: Negative for dysuria, flank pain and urgency.
Musculoskeletal: Negative for back pain, gait problem, neck pain and neck stiffness.
Skin: Negative for rash.
Allergic/Immunologic: Negative. Negative for immunocompromised state.
Neurological: positive for imbalance
Psychiatric/Behavioral: Negative for behavioral problems, confusion and hallucinations.
General: Well developed. In no acute distress.
Cardio: regular rate and rhythm. Extremities 1+ edema
Neuro:
Mental Status: Alert, oriented to person, place, and date. Normal attention and recall. Good fund of knowledge. Follows complex requests across the midline. Comprehension, naming, and repetition intact. Immediate and delayed recall 3/3.
Cranial Nerves: Pupils are equally round and reactive to light. EOMs full. Visual mckinnon full to confrontation. No ptosis. No nystagmus. V1-V3 intact to light touch and pinprick bilaterally, symmetric. Face symmetric. Normal hearing AU. The
palate elevated well. SCMs and traps 5/5. Tongue midline. No dysarthria.
Motor: Normal bulk and tone. No pronator or arm drift. Strength 5/5 throughout, except for R tric 4/5, WE 4/5, IO 5-/5. No clonus.
Reflexes: 1+ throughout the upper extremities and knees. 0/2 in AJs. Plantar responses flexor bilaterally.
Sensory: reduced vibration at the ankles
Coordination: No dysmetria or tremor.
Gait: deferred
Assessment and Plan:
I. Acute L>R MCA territory cortical infarcts. Likely etiology-embolic. Punctate hyperintense lesions on DWI are occasionally found in patients with CAA. In one retrospective review of brain MRIs from 78 patients with probable CAA, subacute infarcts
were identified on DWI in 15 %
II. 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 cSS is associated with an elevated risk of epilepsy in patients with CAA.
III. H/o biparietal intraparenchymal and subarachnoid cortical ICH
IV. PA A-FIb
V. Distal symmetric large fiber polyneuropathy
-BP goal-normotension
-intravenous thrombolysis is contraindicated in the future. Endovascular mechanical thrombectomy may be an option for such patients
-Continue Eliquis 5 mg BID due to higher risk of recurrent ischemic stroke than hemorrhage
-TTE
-Lipitor 40 mg QHS.
-Please check HbA1C, LDL.
-PT.
-DVT prophylaxis.
-Please obtain medical records from [facility]
-The plan was discussed with patient's daughter. All questions were answered.
I personally reviewed all radiology and labs along with past medical records pertinent to current medical problems. Total time spent in patient care is 60 minutes.
Thank you for allowing us to participate in the care of this patient. We will continue to follow. Please do not hesitate to contact us with any questions or concerns.
Subjective/Objective
Subjective Data
Date of Service: December 04, 2023
Objective Data
Vital Signs
Temp Pulse Resp BP Pulse Ox
37.1 C 84 18 180/84 97
12/04/23 09:00 12/04/23 09:00 12/04/23 09:00 12/04/23 09:00 12/04/23 09:34
Lab Results
12/04/23 09:18
12/04/23 09:18
Sodium 142 mmol/L (135-145) 12/04/23 09:18
Potassium 4.3 mmol/L (3.5-5.1) 12/04/23 09:18
BUN 16 mg/dl (7-17) 12/04/23 09:18
Glucose 97 mg/dl (70-99) 12/04/23 09:18
Calcium 9.9 mg/dl (8.4-10.2) 12/04/23 09:18
Patient Allergies
No Known Allergies Allergy (Verified 12/04/23 09:00)
Medications
-
Home Medications
�Medication �Instructions �Recorded
apixaban 5 mg tablet (Eliquis) 5 mg PO BID #60 tabs 01/08/21
calcium 500 mg (as 1 ea PO BID Supplement 04/08/21
carbonate)-vitamin D3 5 mcg (200
unit) tablet (Oyster Shell
Calcium-Vitamin D3)
diltiazem HCl 120 mg 120 mg PO BID Atrial fibrillation 01/06/23
capsule,extended release 24 hr
furosemide 20 mg tablet 20 mg PO DAILY PRN SWELLING OF THE 01/06/23
ANKLES
levothyroxine 88 mcg tablet 88 mcg PO DAILY Hypothyroidism 01/06/23
amoxicillin 875 mg-potassium 1 tab PO BID #10 tabs 01/07/23
clavulanate 125 mg tablet
ondansetron 4 mg disintegrating 4 mg PO Q8H PRN nausea and 04/19/23
tablet vomiting 4 days #14 tabs
diltiazem HCl 360 mg 360 mg PO DAILY #10 caps 07/23/23
capsule,extended release 24 hr
Vital Signs and Labs
-
Vital Signs and Labs:
Vital Signs
Temp Pulse Resp BP Pulse Ox
37.1 C 69 14 133/58 98
12/04/23 09:00 12/04/23 09:45 12/04/23 09:45 12/04/23 09:33 12/04/23 09:45
Lab Results
12/04/23 09:18
12/04/23 09:18
Sodium 142 mmol/L (135-145) 12/04/23 09:18
Potassium 4.3 mmol/L (3.5-5.1) 12/04/23 09:18
BUN 16 mg/dl (7-17) 12/04/23 09:18
Glucose 97 mg/dl (70-99) 12/04/23 09:18
Calcium 9.9 mg/dl (8.4-10.2) 12/04/23 09:18
Home Medications
-
Home Medications
apixaban 5 mg tablet (Eliquis) 5 mg PO BID #60 tabs 01/08/21
calcium 500 mg (as carbonate)-vitamin D3 5 mcg (200 unit) tablet (Oyster Shell Calcium-Vitamin D3) 1 ea PO BID Supplement 04/08/21
diltiazem HCl 120 mg capsule,extended release 24 hr 120 mg PO BID Atrial fibrillation 01/06/23
furosemide 20 mg tablet 20 mg PO DAILY PRN SWELLING OF THE ANKLES 01/06/23
levothyroxine 88 mcg tablet 88 mcg PO DAILY Hypothyroidism 01/06/23
amoxicillin 875 mg-potassium clavulanate 125 mg tablet 1 tab PO BID #10 tabs 01/07/23
ondansetron 4 mg disintegrating tablet 4 mg PO Q8H PRN nausea and vomiting 4 days #14 tabs 04/19/23
diltiazem HCl 360 mg capsule,extended release 24 hr 360 mg PO DAILY #10 caps 07/23/23
[2023-12-04 10:00] VITALS: BP 132/60
[2023-12-04 10:09] LABS: TSH Reflex To Free T4 2.15 uIU/ml (0.47-4.68)
[2023-12-04 11:24] VITALS: BP 142/71
[2023-12-04 12:00] VITALS: BP 138/70
[2023-12-04 12:30] LABS: Erythrocyte Sed Rate 19 mm/hour (0-20)
[2023-12-04 12:52] LABS: HDL Cholesterol 89 mg/dl; LDL Cholesterol, Calculated 115 mg/dl; Total Cholesterol 213 mg/dl (50-199); Triglyceride 47 mg/dl (10-149); Very Low Density Lipoprotein 9 mg/dl (0-30)
[2023-12-04 13:12] LABS: C-Reactive Protein < 5.00 mg/L (0.0-10.00)
[2023-12-04 13:57] VITALS: BP 136/74
[2023-12-04 14:14] LABS: Glycohemoglobin (HgbA1c) 5.5 % (4.0-5.6)
== END 2023-12-04 13:58 | disposition home or self-care (01) ==
LOC: EMR 08:58
PROVIDERS: EMERGENCY PHYSICIAN Emergency Medicine; FAMILY PHYSICIAN Family Medicine; OTHER PHYSICIAN Psychiatry & Neurology Neurology
DX: I63.9 Cerebral infarction, unspecified (principal); R41.4 Neurologic neglect syndrome; G81.91 Hemiplegia, unspecified affecting right dominant side; R04.0 Epistaxis; M79.89 Other specified soft tissue disorders; I12.9 Hypertensive chronic kidney disease with stage 1 through stage 4 chronic kidney disease, or unspecified chronic kidney disease; N18.9 Chronic kidney disease, unspecified; I48.91 Unspecified atrial fibrillation; G47.33 Obstructive sleep apnea (adult) (pediatric); R56.9 Unspecified convulsions; E89.0 Postprocedural hypothyroidism; Z79.01 Long term (current) use of anticoagulants; Z79.899 Other long term (current) drug therapy; Z85.3 Personal history of malignant neoplasm of breast; Z85.850 Personal history of malignant neoplasm of thyroid; Z86.711 Personal history of pulmonary embolism; Z87.891 Personal history of nicotine dependence
CPT/HCPCS: 99285; 70450; 70496; 70498; 80048; 80061; 83036; 84443; 85025; 85652; 86140; 93005; Q9967

== ENCOUNTER → 2023-12-23 14:49 | Outpatient (REF) | payer MEDICARE, SELFPAY | LOC: DHSLP 14:49 | PROVIDERS: ATTENDING PHYSICIAN Nurse Practitioner Adult Health; FAMILY PHYSICIAN Family Medicine | DX: G47.33 Obstructive sleep apnea (adult) (pediatric) (principal); R06.83 Snoring | CPT/HCPCS: 95800 ==

== ENCOUNTER → 2024-04-06 06:26 | Outpatient (REF) | payer MEDICARE, SELFPAY ==
[2024-04-06 08:02] LABS: HDL Cholesterol 104 mg/dl; LDL Cholesterol, Calculated 56 mg/dl; Total Cholesterol 169 mg/dl (50-199); Triglyceride 46 mg/dl (10-149); Very Low Density Lipoprotein 9 mg/dl (0-30)
== END ==
LOC: REG 06:26
PROVIDERS: ATTENDING PHYSICIAN Nurse Practitioner; FAMILY PHYSICIAN Family Medicine
DX: E78.5 Hyperlipidemia, unspecified (principal)
CPT/HCPCS: 36415; 80061

== ENCOUNTER → 2024-06-28 09:18 | Outpatient (REF) | payer MEDICARE, SELFPAY ==
[2024-06-28 09:53] LABS: Medical Necessity Pt Refused Y
[2024-06-28 10:39] LABS: ALT (SGPT) 20 U/L (0-35); AST (SGOT) 23 U/L (14-36); Albumin 4.3 g/dl (3.5-5.0); Alkaline Phosphatase 93 U/L (38-126); Blood Urea Nitrogen 21 mg/dl (7-17); Calcium 9.5 mg/dl (8.4-10.2); Carbon Dioxide 23 mmol/L (22-30); Chloride 109 mmol/L (98-107); Glucose 102 mg/dl (70-99); Potassium 4.2 mmol/L (3.5-5.1); Sodium 142 mmol/L (135-145); Total Bilirubin 1.1 mg/dl (0.2-1.3); Total Protein 6.8 g/dl (6.3-8.2); eGFR > 60.00
[2024-06-28 11:09] LABS: TSH 2.61 uIU/ml (0.47-4.68)
== END ==
LOC: REG 09:18
PROVIDERS: ATTENDING PHYSICIAN Family Medicine
DX: Z86.73 Personal history of transient ischemic attack (TIA), and cerebral infarction without residual deficits (principal); Z79.01 Long term (current) use of anticoagulants; I10 Essential (primary) hypertension; E03.9 Hypothyroidism, unspecified; I50.32 Chronic diastolic (congestive) heart failure; J44.9 Chronic obstructive pulmonary disease, unspecified; N18.31 Chronic kidney disease, stage 3a
CPT/HCPCS: 36415; 80053; 84443

== ENCOUNTER → 2025-02-14 10:47 | Outpatient (REF) | payer MEDICARE, SELFPAY | LOC: RCS 10:47 | PROVIDERS: ATTENDING PHYSICIAN Internal Medicine Cardiovascular Disease; FAMILY PHYSICIAN Family Medicine | DX: I48.0 Paroxysmal atrial fibrillation (principal); R60.0 Localized edema; I34.0 Nonrheumatic mitral (valve) insufficiency | CPT/HCPCS: 93306 ==